=== PATIENT | male | born 1970 | race Caucasian/White ===

== ENCOUNTER 2021-10-13 22:31 | Emergency (ER) | payer OTHER ==
[2021-10-14] MEDS ORDERED: ACETAMINOPHEN 325 MG TABLET ONE (01:33)
[2021-10-14] MEDS ORDERED: DIPHENHYDRAMINE 50 MG/ML VIAL ONE (01:34)
[2021-10-14] MEDS ORDERED: BEBTELOVIMAB 175 MG/2 ML VIAL IV ONE (01:34)
--- NOTE | 2021-10-14 03:39 | ER ---
Nurse's Notes [facility] Name: Bryce Park Age: 51 yrs Sex: Male : 1970 Arrival Date: 10/13/2021 Time: 22:36 Bed 8 Private MD: Diagnosis: Coronavirus infection, unspecified Presentation: 10/13 22:51 Chief complaint: Patient states: COVID + - requesting antibodies. Coronavirus screen: ld1 Client presents with at least one sign or symptom that may indicate coronavirus-19. Standard/surgical mask placed on the client. Ebola Screen: No symptoms or risks identified at this time. Initial Sepsis Screen: Does the patient meet any 2 criteria? No. Patient's initial sepsis screen is negative. Does the patient have a suspected source of infection? No. Patient's initial sepsis screen is negative. Risk Assessment: Do you want to hurt yourself or someone else? Patient reports no desire to harm self or others. Onset of symptoms was October 13, 2021. 22:51 Method Of Arrival: Ambulatory ld1 22:51 Acuity: MIRIAN 4 ld1 Triage Assessment: 22:52 General: Appears in no apparent distress. comfortable, Behavior is calm, cooperative, ld1 appropriate for age. Pain: Denies pain. EENT: No signs and/or symptoms were reported regarding the EENT system. Neuro: Level of Consciousness is awake, alert, obeys commands, Oriented to person, place, time, situation. Cardiovascular: Capillary refill < 3 seconds Patient's skin is warm and dry. Respiratory: Airway is patent Respiratory effort is even, unlabored. GI: Abdomen is flat, non-distended. : No signs and/or symptoms were reported regarding the genitourinary system. Derm: No signs and/or symptoms reported regarding the dermatologic system. Musculoskeletal: No signs and/or symptoms reported regarding the musculoskeletal system. Historical: - Allergies: 22:52 No Known Allergies; ld1 - Home Meds: 22:52 None [Active]; ld1 - PMHx: 22:52 None; ld1 - PSHx: 22:52 None; ld1 - Immunization history:: Adult Immunizations up to date, Client reports having NOT received the Covid vaccine. - Social history:: Smoking status: Patient denies any tobacco usage or history of. Patient/guardian denies using alcohol. Screenin/11 03:04 Abuse screen: Denies threats or abuse. Denies injuries from another. Nutritional kd3 screening: No deficits noted. Tuberculosis screening: No symptoms or risk factors identified. Fall Risk IV access (20 points). Assessment: 03:03 General: Appears in no apparent distress. Behavior is calm, cooperative. Neuro: Level kd3 of Consciousness is awake, alert, obeys commands, Oriented to person, place, time, situation. Cardiovascular: Patient's skin is warm and dry. Respiratory: Airway is patent Trachea midline Respiratory effort is even, unlabored. 04:02 Reassessment: No changes from previously documented assessment. Patient and/or family sm5 updated on plan of care and expected duration. Pain level reassessed. Vital Signs: 10/13 22:51 BP 136 / 88; Pulse 94; Resp 18; Temp 98.9(TE); Pulse Ox 99% on R/A; Weight 85.28 kg; ld1 Height 6 ft. 0 in. (182.88 cm); Pain 0/10; 10/14 01:41 Pulse 88; Resp 17; Temp 98.5; Pulse Ox 100% on R/A; kd3 02:50 BP 176 / 105; Pulse 57; Resp 18; Pulse Ox 97% ; kd3 03:03 Temp 98.5(O); kd3 04:01 BP 172 / 108; Pulse 79; Resp 17; Pulse Ox 100% on R/A; sm5 10/13 22:51 Body Mass Index 25.50 (85.28 kg, 182.88 cm) ld1 ED Course: 10/13 22:36 Patient arrived in ED. bp1 22:52 Triage completed. ld1 22:52 Arm band placed on right wrist. ld1 22:54 Kanwal Robles, LAINE is Primary Nurse. kd3 23:42 Hector Saucedo MD is Attending Physician. 7 10/14 01:30 Inserted saline lock: 20 gauge in right antecubital area, using aseptic technique. sm5 03:04 Patient has correct armband on for positive identification. Bed in low position. Call kd3 light in reach. Pulse ox on. NIBP on. 04:04 No provider procedures requiring assistance completed. IV discontinued, intact, sm5 bleeding controlled, No redness/swelling at site. Pressure dressing applied. Administered Medications: 01:41 Drug: Tylenol 1000 mg Route: PO; kd3 04:05 Follow up: Response: No adverse reaction 5 01:41 Drug: Benadryl (diphenhydrAMINE) 25 mg Route: IVP; Site: right antecubital; kd3 04:05 Follow up: Response: No adverse reaction 5 Medication: 03:04 VIS not applicable for this client. kd3 Outcome: 03:38 Discharge ordered by . [facility] 04:04 Discharged to home ambulatory, with significant other. 5 04:04 Condition: stable 04:04 Discharge instructions given to patient, Instructed on discharge instructions, follow up and referral plans. medication usage, Demonstrated understanding of instructions, follow-up care, medications, Prescriptions given X 4. 04:08 Patient left the ED. 5 Signatures: Herminia Smith Maurice, MD MD 7 Shweta Moser RN RN ld1 Kanwal Robles RN RN kd3 Kayla Santana RN RN 5 Corrections: (The following items were deleted from the chart) 10/13 22:53 22:52 Allergies: No Known Allergies; ld1 ld1
--- NOTE | 2021-10-14 03:39 | EDPHYS ---
Physician Documentation [facility] Name: Bryce Park Age: 51 yrs Sex: Male : 1970 Arrival Date: 10/13/2021 Time: 22:36 Bed 8 Private MD: ED Physician Hector Saucedo HPI: 10/14 00:40 This 51 yrs old Male presents to ER via Ambulatory with complaints of Covid+. [facility] 00:40 The patient or guardian reports cough, that is intermittent, described as mild, with no [facility] sputum, runny nose, congestion. Onset: The symptoms/episode began/occurred yesterday. 00:40 Severity of symptoms: At their worst the symptoms were moderate, yesterday, in the [facility] emergency department the symptoms have improved, moderately. Modifying factors: The symptoms are alleviated by nothing, the symptoms are aggravated by nothing. Associated signs and symptoms: Pertinent positives: rhinorrhea, Pertinent negatives: chest pain, diarrhea, ear ache, fever, nausea, sore throat, vomiting. Tested positive for COVID with home test prior to coming to ER. Historical: - Allergies: 10/13 22:52 No Known Allergies; ld1 - Home Meds: 22:52 None [Active]; ld1 - PMHx: 22:52 None; ld1 - PSHx: 22:52 None; ld1 - Immunization history:: Adult Immunizations up to date, Client reports having NOT received the Covid vaccine. - Social history:: Smoking status: Patient denies any tobacco usage or history of. Patient/guardian denies using alcohol. ROS: 10/14 00:40 Constitutional: Negative for fever, chills, and weight loss, Eyes: Negative for injury, mh7 pain, redness, and discharge, Neck: Negative for injury, pain, and swelling, Cardiovascular: Negative for chest pain, palpitations, and edema, Respiratory: Negative for shortness of breath, cough, wheezing, and pleuritic chest pain, Abdomen/GI: Negative for abdominal pain, nausea, vomiting, diarrhea, and constipation, Back: Negative for injury and pain, : Negative for injury, bleeding, discharge, and swelling, MS/Extremity: Negative for injury and deformity, Skin: Negative for injury, rash, and discoloration, Neuro: Negative for headache, weakness, numbness, tingling, and seizure, Psych: Negative for depression, anxiety, suicide ideation, homicidal ideation, and hallucinations, Allergy/Immunology: Negative for hives, rash, and allergies, Endocrine: Negative for neck swelling, polydipsia, polyuria, polyphagia, and marked weight changes, Hematologic/Lymphatic: Negative for swollen nodes, abnormal bleeding, and unusual bruising. Exam: 00:40 Constitutional: This is a well developed, well nourished patient who is awake, alert, mh7 and in no acute distress. Head/Face: Normocephalic, atraumatic. Eyes: Pupils equal round and reactive to light, extra-ocular motions intact. Lids and lashes normal. Conjunctiva and sclera are non-icteric and not injected. Cornea within normal limits. Periorbital areas with no swelling, redness, or edema. ENT: Nares patent. No nasal discharge, no septal abnormalities noted. Tympanic membranes are normal and external auditory canals are clear. Oropharynx with no redness, swelling, or masses, exudates, or evidence of obstruction, uvula midline. Mucous membranes moist. Neck: Trachea midline, no thyromegaly or masses palpated, and no cervical lymphadenopathy. Supple, full range of motion without nuchal rigidity, or vertebral point tenderness. No Meningismus. Chest/axilla: Normal chest wall appearance and motion. Nontender with no deformity. No lesions are appreciated. Cardiovascular: Regular rate and rhythm with a normal S1 and S2. No gallops, murmurs, or rubs. Normal PMI, no JVD. No pulse deficits. Respiratory: Lungs have equal breath sounds bilaterally, clear to auscultation and percussion. No rales, rhonchi or wheezes noted. No increased work of breathing, no retractions or nasal flaring. Abdomen/GI: Soft, non-tender, with normal bowel sounds. No distension or tympany. No guarding or rebound. No evidence of tenderness throughout. Back: No spinal tenderness. No costovertebral tenderness. Full range of motion. Skin: Warm, dry with normal turgor. Normal color with no rashes, no lesions, and no evidence of cellulitis. MS/ Extremity: Pulses equal, no cyanosis. Neurovascular intact. Full, normal range of motion. Neuro: Awake and alert, GCS 15, oriented to person, place, time, and situation. Cranial nerves II-XII grossly intact. Motor strength 5/5 in all extremities. Sensory grossly intact. Cerebellar exam normal. Normal gait. Psych: Awake, alert, with orientation to person, place and time. Behavior, mood, and affect are within normal limits. Vital Signs: 10/13 22:51 BP 136 / 88; Pulse 94; Resp 18; Temp 98.9(TE); Pulse Ox 99% on R/A; Weight 85.28 kg; ld1 Height 6 ft. 0 in. (182.88 cm); Pain 0; 10/14 01:41 Pulse 88; Resp 17; Temp 98.5; Pulse Ox 100% on R/A; kd3 02:50 BP 176 / 105; Pulse 57; Resp 18; Pulse Ox 97% ; kd3 03:03 Temp 98.5(O); kd3 04:01 BP 172 / 108; Pulse 79; Resp 17; Pulse Ox 100% on R/A; sm5 10/13 22:51 Body Mass Index 25.50 (85.28 kg, 182.88 cm) ld1 MDM: 03:37 Differential Diagnosis: Influenza Upper Respiratory Infection Viral Syndrome. Data 7 reviewed: vital signs, nurses notes. Data interpreted: Pulse oximetry: on room air is 97 %. Interpretation: normal. Counseling: I had a detailed discussion with the patient and/or guardian regarding: the historical points, exam findings, and any diagnostic results supporting the discharge/admit diagnosis, the need for outpatient follow up, to return to the emergency department if symptoms worsen or persist or if there are any questions or concerns that arise at home. Response to treatment: the patient's symptoms have markedly improved after treatment. 03:38 Patient medically screened. [facility] 10/14 01:17 Order name: [facility]. Order: Bebtelovimab 175 mg IV; Complete Time: 01:55 mh7 Administered Medications: 01:41 Drug: Tylenol 1000 mg Route: PO; kd3 04:05 Follow up: Response: No adverse reaction 5 01:41 Drug: Benadryl (diphenhydrAMINE) 25 mg Route: IVP; Site: right antecubital; kd3 04:05 Follow up: Response: No adverse reaction 5 Disposition Summary: 10/14/21 03:38 Discharge Ordered Location: Home [facility] Problem: new [facility] Symptoms: have improved [facility] Condition: Stable [facility] Diagnosis - Coronavirus infection, unspecified [facility] Followup: [facility] - With: Private Physician - When: 1 - 2 days - Reason: Worsening of condition, Recheck today's complaints, Continuance of care, Re-evaluation by your physician Discharge Instructions: - Discharge Summary Sheet [facility] - COVID-19 [facility] - COVID-19 Frequently Asked Questions [facility] - 10 Things You Can Do to Manage Your COVID-19 Symptoms at Home - [place] [id number] - COVID-19: Quarantine vs. Isolation - [place] [id number] Forms: - Medication Reconciliation Form [facility] - Thank You Letter [facility] - Antibiotic Education [facility] - Prescription Opioid Use [facility] Prescriptions: - albuterol sulfate 90 mcg/actuation Inhalation HFA aerosol inhaler - inhale 1 puff by INHALATION route every 6 hours As needed; 1 Inhaler; Refills: [facility] 0, Product Selection Permitted - aspirin 81 mg Oral tablet,chewable - chew 1 tablet by ORAL route once daily; 30 tablet; Refills: 0, Product [facility] Selection Permitted - Tessalon Perles 100 mg Oral Capsule - take 1 capsule by ORAL route every 8 hours As needed; 15 capsule; Refills: 0, [facility] Product Selection Permitted - Zithromax Z-Laron 250 mg Oral Tablet - take 1 tablet by ORAL route as directed for 5 days Day 1 - take two (2) tablets [facility] one time. Day 2, 3, 4 , 5 take one (1) tablet once daily.; 6 tablet; Refills: 0, Product Selection Permitted Signatures: Hector Saucedo MD MD 7 Shweta Moser RN RN ld1 Kanwal Robles RN RN kd3 Kayla Santana RN sm5 Corrections: (The following items were deleted from the chart) 10/13 22:53 22:52 Allergies: No Known Allergies; simón1 ld1
[2021-10-14 04:17] VITALS: TEMP 98.5
[2021-10-14 04:22] VITALS: BP 172/108; O2SAT 100
== END 2021-10-14 04:08 | disposition home or self-care (01) ==
LOC: ER 22:31
DX: U07.1 COVID-19 (principal)
CPT/HCPCS: 96374; 99284; J1200